=== PATIENT | male | born 1945 | race African-American/Black ===

== ENCOUNTER 2019-07-02 02:55 | Inpatient (IN) ==
[2019-07-02] MEDS ORDERED: ASPIRIN 325 MG TABLET PO STA (03:29)
[2019-07-02] MEDS ORDERED: DILTIAZEM 50 MG/10 ML VIAL IV STA (03:29)
[2019-07-02] MEDS ORDERED: SODIUM CHLORIDE 0.9% 1,000 ML IV STA (03:30)
[2019-07-02] MEDS ORDERED: DILTIAZEM 25 MG/5 ML VIAL IV ONE (03:30)
[2019-07-02 03:40] LABS: Basophils % 0.5 % (0.0-0.8); Eosinophils # 0.2 10*3/uL (0.0-0.87); Eosinophils % 2.5 % (0.00-10.9); Hematocrit 47.7 VOL% (42.0-52.0); Immature Granulocytes % 0.5 %; Immature Granulocytes Absolute 0.04 #; Lymphocytes # 2.5 10*3/uL (1.4-4.0); Lymphocytes % 28.9 % (21.2-54.2); Mean Corpuscular HGB Conc 31.4 GM/DL (32-36); Mean Corpuscular Volume 83.5 FL (87-102); Mean Platelet Volume 10.9 FL (9.6-12.0); Monocytes % 8.4 % (1.7-12.7); Neutrophils % 59.2 % (38.7-73.9); Platelet Count 310 T/CUMM (130-400); Red Blood Count 5.71 MC/CUMM (3.8-5.5); Red Cell Distribution Width 16.5 % (9.3-17.3); White Blood Count 8.6 T/CUMM (4-12)
[2019-07-02 03:54] LABS: INR 0.9; PT Patient Result 10.1 SECS (9.6-12.2)
[2019-07-02] MEDS ORDERED: DILTIAZEM INJ 100 MG in SODIUM CHLORIDE 0.9% 100 ML IV SCH (04:00)
[2019-07-02 04:06] LABS: Alanine Aminotransferase 31 U/L (16-61); Alkaline Phosphatase 84 U/L (45-117); Aspartate Amino Transferase 24 U/L (0-37); Bilirubin,Total < 0.39 MG/DL (0.2-1.0); Blood Urea Nitrogen 15 MG/DL (7-18); Calcium 10.5 MG/DL (8.5-10.1); Estimated Glom Filtration Rate 79 ML/MIN; Glucose 214 MG/DL (74-106); Total Protein 8.9 G/DL (6.4-8.3)
[2019-07-02] MEDS ORDERED: ENOXAPARIN 30 MG/0.3 ML SYRINGE SUBCUT STA (04:11)
[2019-07-02] MEDS ORDERED: ACETAMINOPHEN 325 MG TABLET PO PRN (04:16)
[2019-07-02] MEDS ORDERED: diphenhydrAMINE CAP 25 MG CAPSULE PO PRN (04:16)
[2019-07-02] MEDS ORDERED: NICOTINE 21 MG/24 HR PATCH TRANSDERM PRN (04:16)
[2019-07-02] MEDS ORDERED: hydrALAZINE 20 MG/1 ML VIAL IV PRN (04:16)
[2019-07-02] MEDS ORDERED: ONDANSETRON 4 MG/2 ML VIAL IV PRN (04:16)
[2019-07-02] MEDS ORDERED: ALUMINUM/MAGNES/SIMETH MAX STR 30 ML UDCUP PO PRN (04:16)
[2019-07-02] MEDS: dilTIAZem Drip 125 MG/125 ML PREMIX IV SCH (04:26)
[2019-07-02 04:58] LABS: Risk Ratio 2.25; VLDL CHOLESTEROL 14.8 MG/DL
[2019-07-02 05:04] LABS: Thyroid Stimulating Hormone 3.58 uIU/ml (0.358-3.74)
[2019-07-02] MEDS ORDERED: GLUCAGON 1 MG VIAL IM PRN (11:22)
[2019-07-02] MEDS ORDERED: DEXTROSE 10% 250 ML BAG IV PRN (11:22)
[2019-07-02] MEDS ORDERED: metFORMIN 500 MG TABLET PO SCH (11:30)
[2019-07-02] MEDS ORDERED: amLODIPine 10 MG TABLET PO SCH (11:30)
[2019-07-02] MEDS: ASPIRIN EC 81 MG TABLET PO SCH (11:46)
[2019-07-02] MEDS: glipiZIDE 10 MG TABLET PO SCH ×2 (11:46→21:25)
[2019-07-02] MEDS: LOSARTAN 25 MG TABLET PO SCH (11:46)
[2019-07-02] MEDS: CLOPIDOGREL 75 MG TABLET PO SCH (11:46)
[2019-07-02] MEDS: sitaGLIPtin 100 MG TABLET PO SCH (11:47)
[2019-07-02] MEDS: SULFAMETHOX/TRIMETHOPRIM 800-160 MG TABLET PO SCH ×2 (12:00→21:26)
[2019-07-02] MEDS: INSULIN LISPRO 100 UNIT/ML SUBCUT SCH ×3 (12:00→21:25)
[2019-07-02] MEDS: METOPROLOL TARTRATE 25 MG TABLET PO SCH ×2 (13:33→18:30)
[2019-07-02] MEDS ORDERED: ATORVASTATIN 10 MG TABLET PO SCH (21:00)
[2019-07-02] MEDS: ATORVASTATIN 40 MG TABLET PO SCH (21:24)
[2019-07-02] MEDS: ENOXAPARIN 80 MG/0.8 ML SYRINGE SUBCUT SCH (21:25)
[2019-07-03] MEDS: METOPROLOL TARTRATE 25 MG TABLET PO SCH ×4 (01:04→20:42)
[2019-07-03] MEDS: dilTIAZem Drip 125 MG/125 ML PREMIX IV SCH (01:21)
[2019-07-03 05:30] LABS: Basophils # 0.1 10*3/uL (0.0-0.2); Basophils % 0.6 % (0.0-0.8); Eosinophils # 0.2 10*3/uL (0.0-0.87); Eosinophils % 2.4 % (0.00-10.9); Hematocrit 39.3 VOL% (42.0-52.0); Hemoglobin 12.4 GM/DL (14.0-18.0); Immature Granulocytes % 0.5 %; Immature Granulocytes Absolute 0.04 #; Lymphocytes # 2.6 10*3/uL (1.4-4.0); Lymphocytes % 31.2 % (21.2-54.2); Mean Corpuscular HGB Conc 31.6 GM/DL (32-36); Mean Corpuscular Volume 83.1 FL (87-102); Neutrophils % 56.3 % (38.7-73.9); Platelet Count 298 T/CUMM (130-400); Red Blood Count 4.73 MC/CUMM (3.8-5.5); Red Cell Distribution Width 16.2 % (9.3-17.3); White Blood Count 8.3 T/CUMM (4-12)
[2019-07-03 05:51] LABS: Calcium 9.2 MG/DL (8.5-10.1); Osmolality,Calculated 280.4 MOS/KG (273-304)
[2019-07-03] MEDS: INSULIN LISPRO 100 UNIT/ML SUBCUT SCH ×5 (06:51→20:44)
[2019-07-03] MEDS: LOSARTAN 25 MG TABLET PO SCH (09:33)
[2019-07-03] MEDS: glipiZIDE 10 MG TABLET PO SCH ×2 (09:33→20:41)
[2019-07-03] MEDS: sitaGLIPtin 100 MG TABLET PO SCH (09:34)
[2019-07-03] MEDS: CLOPIDOGREL 75 MG TABLET PO SCH (09:34)
[2019-07-03] MEDS: ASPIRIN EC 81 MG TABLET PO SCH (09:34)
[2019-07-03] MEDS: ENOXAPARIN 80 MG/0.8 ML SYRINGE SUBCUT SCH (09:34)
[2019-07-03] MEDS: SULFAMETHOX/TRIMETHOPRIM 800-160 MG TABLET PO SCH ×2 (09:35→20:44)
[2019-07-03] MEDS: ATORVASTATIN 40 MG TABLET PO SCH (20:41)
[2019-07-04 06:22] LABS: Basophils % 0.5 % (0.0-0.8); Eosinophils # 0.2 10*3/uL (0.0-0.87); Eosinophils % 3.3 % (0.00-10.9); Hematocrit 38.5 VOL% (42.0-52.0); Hemoglobin 12.6 GM/DL (14.0-18.0); Immature Granulocytes % 0.3 %; Immature Granulocytes Absolute 0.02 #; Lymphocytes # 2.2 10*3/uL (1.4-4.0); Lymphocytes % 29.6 % (21.2-54.2); Mean Corpuscular HGB Conc 32.7 GM/DL (32-36); Mean Corpuscular Volume 80.9 FL (87-102); Mean Platelet Volume 11.5 FL (9.6-12.0); Monocytes % 11.6 % (1.7-12.7); Neutrophils % 54.7 % (38.7-73.9); Platelet Count 265 T/CUMM (130-400); Red Blood Count 4.76 MC/CUMM (3.8-5.5); Red Cell Distribution Width 15.8 % (9.3-17.3); White Blood Count 7.3 T/CUMM (4-12)
[2019-07-04 06:32] LABS: Calcium 9.3 MG/DL (8.5-10.1); Osmolality,Calculated 282.3 MOS/KG (273-304)
[2019-07-04] MEDS: INSULIN LISPRO 100 UNIT/ML SUBCUT SCH ×4 (08:40→21:18)
[2019-07-04] MEDS: CLOPIDOGREL 75 MG TABLET PO SCH (08:45)
[2019-07-04] MEDS: SULFAMETHOX/TRIMETHOPRIM 800-160 MG TABLET PO SCH ×2 (08:45→21:18)
[2019-07-04] MEDS: LOSARTAN 25 MG TABLET PO SCH (08:45)
[2019-07-04] MEDS: METOPROLOL TARTRATE 25 MG TABLET PO SCH ×2 (08:45→21:19)
[2019-07-04] MEDS: ASPIRIN EC 81 MG TABLET PO SCH (08:45)
[2019-07-04] MEDS: glipiZIDE 10 MG TABLET PO SCH ×2 (08:47→21:18)
[2019-07-04] MEDS: sitaGLIPtin 100 MG TABLET PO SCH (08:47)
[2019-07-04] MEDS ORDERED: diphenhydrAMINE CAP 25 MG CAPSULE PO ONE (11:26)
[2019-07-04] MEDS ORDERED: DIAZEPAM 5 MG TABLET PO ONE (11:26)
[2019-07-04] MEDS ORDERED: SODIUM CHLORIDE 0.45% 1,000 ML IV SCH (11:30)
[2019-07-04] MEDS ORDERED: MIDAZOLAM 2 MG/2 ML VIAL ONE ×2 (14:07→14:59)
[2019-07-04] MEDS ORDERED: fentaNYL 100 MCG/2 ML VIAL ONE (14:07)
[2019-07-04] MEDS ORDERED: LIDOCAINE 1% 20 ML VIAL ONE (14:49)
[2019-07-04] MEDS ORDERED: SODIUM CHLORIDE 0.9% 1,000 ML IV SCH (15:30)
[2019-07-04] MEDS: ATORVASTATIN 40 MG TABLET PO SCH (21:18)
[2019-07-05 05:10] LABS: Basophils # 0.1 10*3/uL (0.0-0.2); Basophils % 0.7 % (0.0-0.8); Eosinophils # 0.2 10*3/uL (0.0-0.87); Eosinophils % 2.5 % (0.00-10.9); Hematocrit 43.6 VOL% (42.0-52.0); Hemoglobin 13.8 GM/DL (14.0-18.0); Immature Granulocytes % 0.3 %; Immature Granulocytes Absolute 0.02 #; Lymphocytes # 1.7 10*3/uL (1.4-4.0); Lymphocytes % 24.2 % (21.2-54.2); Mean Corpuscular HGB Conc 31.7 GM/DL (32-36); Mean Corpuscular Volume 81.8 FL (87-102); Mean Platelet Volume 12.2 FL (9.6-12.0); Monocytes % 11.9 % (1.7-12.7); Neutrophils % 60.4 % (38.7-73.9); Platelet Count 281 T/CUMM (130-400); Red Blood Count 5.33 MC/CUMM (3.8-5.5); Red Cell Distribution Width 15.9 % (9.3-17.3); White Blood Count 6.9 T/CUMM (4-12)
[2019-07-05 05:45] LABS: Calcium 9.3 MG/DL (8.5-10.1); Osmolality,Calculated 286.1 MOS/KG (273-304)
[2019-07-05] MEDS: INSULIN LISPRO 100 UNIT/ML SUBCUT SCH ×2 (08:43→13:01)
[2019-07-05 09:05] VITALS: BP 133/75
[2019-07-05] MEDS: glipiZIDE 10 MG TABLET PO SCH (09:35)
[2019-07-05] MEDS: ASPIRIN EC 81 MG TABLET PO SCH (09:36)
[2019-07-05] MEDS: METOPROLOL TARTRATE 25 MG TABLET PO SCH (09:36)
[2019-07-05] MEDS: sitaGLIPtin 100 MG TABLET PO SCH (09:36)
[2019-07-05] MEDS: SULFAMETHOX/TRIMETHOPRIM 800-160 MG TABLET PO SCH (09:36)
[2019-07-05] MEDS: LOSARTAN 25 MG TABLET PO SCH (09:38)
[2019-07-05] MEDS ORDERED: ASCORBIC ACID 500 MG TABLET PO SCH (21:00)
== END 2019-07-05 13:15 | disposition home or self-care, planned readmission (81) | DRG 282 ==
LOC: N.ED 02:55 → N.EDINP 04:16 → N.TELES 05:14
PROVIDERS: ADMIT Internal Medicine; ATTEND Internal Medicine

== ENCOUNTER 2019-07-13 07:00 | Inpatient (IN) ==
[2019-07-13] MEDS ORDERED: DEXTROSE 50% 25 GM/50 ML VIAL IV PRN ×2 (08:55)
[2019-07-13] MEDS ORDERED: CEFUROXIME INJ 1,500 MG in SYRINGE 1 EACH IV ONE (08:55)
[2019-07-13] MEDS ORDERED: GLUCAGON 1 MG VIAL IM PRN ×2 (08:55)
[2019-07-13] MEDS ORDERED: SODIUM CHLORIDE 0.9% 1,000 ML IV SCH (09:00)
[2019-07-13 10:05] LABS: ABG HCO3 19.9 MMOL/L (20-26); ABG Oxygen Saturation 95.4 % (95-100); ABG PCO2 32.8 MM HG (35-48); ABG PO2 78.5 MM HG (80-95); ABG TCO2 20.9 MMOL/L (23-27); Allen Test Positive; Pt O2 Delivery Device Room Air
[2019-07-13] MEDS: CHLORHEXIDINE 0.12% ORAL RINSE 60 ML BOTTLE SWISH/SPIT SCH ×2 (10:26→21:19)
[2019-07-13 10:31] LABS: Basophils # 0.1 10*3/uL (0.0-0.2); Basophils % 0.8 % (0.0-0.8); Eosinophils # 0.2 10*3/uL (0.0-0.87); Eosinophils % 2.1 % (0.00-10.9); Hematocrit 42.3 VOL% (42.0-52.0); Hemoglobin 13.5 GM/DL (14.0-18.0); Immature Granulocytes % 0.3 %; Immature Granulocytes Absolute 0.02 #; Mean Corpuscular HGB Conc 31.9 GM/DL (32-36); Mean Corpuscular Volume 82.5 FL (87-102); Mean Platelet Volume 11.5 FL (9.6-12.0); Monocytes % 8.9 % (1.7-12.7); Neutrophils % 60.9 % (38.7-73.9); Platelet Count 285 T/CUMM (130-400); Red Blood Count 5.13 MC/CUMM (3.8-5.5); Red Cell Distribution Width 16.1 % (9.3-17.3); White Blood Count 7.5 T/CUMM (4-12)
[2019-07-13 10:54] LABS: Albumin 3.4 G/DL (3.4-5.0); Bilirubin,Total 0.9 MG/DL (0.2-1.0); Calcium 9.5 MG/DL (8.5-10.1); Osmolality,Calculated 279.5 MOS/KG (273-304); Total Protein 7.8 G/DL (6.4-8.3)
[2019-07-13] MEDS ORDERED: NITROGLYCERIN SL 0.4 MG TABLET SL PRN (11:19)
[2019-07-13] MEDS: INSULIN LISPRO 100 UNIT/ML SUBCUT SCH ×3 (12:35→21:20)
[2019-07-13] MEDS: CHLORHEXIDINE 4% SOLN 118 ML BOTTLE TOP SCH ×3 (13:53→21:27)
[2019-07-13] MEDS ORDERED: ATORVASTATIN 40 MG TABLET PO SCH (21:00)
[2019-07-13] MEDS: METOPROLOL TARTRATE 25 MG TABLET PO SCH (21:20)
[2019-07-14] MEDS ORDERED: VANCOMYCIN 1,000 MG VIAL ONE (04:22)
[2019-07-14] MEDS ORDERED: VANCOMYCIN 500 MG VIAL ONE (04:22)
[2019-07-14] MEDS ORDERED: PAPAVERINE 60 MG/2 ML VIAL ONE (04:22)
[2019-07-14] MEDS ORDERED: FAMOTIDINE 20 MG TABLET PO ONE (05:23)
[2019-07-14] MEDS ORDERED: DIAZEPAM 5 MG TABLET PO ONE (05:25)
[2019-07-14] MEDS ORDERED: CEFUROXIME INJ 1,500 MG in SYRINGE 1 EACH IV ONE (06:00)
[2019-07-14] MEDS ORDERED: SODIUM CHLORIDE 0.9% 1,000 ML IV SCH (06:00)
[2019-07-14] MEDS ORDERED: SUFentanil 250 MCG/5 ML AMP ONE (06:05)
[2019-07-14] MEDS ORDERED: MIDAZOLAM 10 MG/2 ML VIAL ONE (06:05)
[2019-07-14 07:48] LABS: ABG Base Excess -0.5 MMOL/L (-2.5-2.5); ABG PH 7.457 (7.35-7.45); ABG TCO2 19.9 MMOL/L (23-27); Glucose Heart Surgery 97 MG/DL (74-106); Ionized Calcium Arterial 1.17 MMOL/L (1.21-1.46); PH Patient Temp Arterial 7.457; Patient Temperature 37 CELCIUS; Potassium Heart/CVR 3.5 MMOL/L (3.5-5.1); Sodium Heart/CVR 139 MMOL/L (135-145)
[2019-07-14 08:01] LABS: Apearance,Urine CLEAR (Clear); Bilirubin,Urine Negative (Negative); Blood, Urine Moderate mg/dL (Negative); Glucose,Urine (UA) Negative (Negative); Ketones,Urine Negative (Negative); Mucus,Urine Occasional /LPF (Occasional); Nitrite,Urine Negative (Negative); Protein,Urine 30 MG/DL; RBC,Urine 13 /HPF (0-4); Squamous Epithelial Cell,Urine Occasional /HPF (0-10); Urine Color Yellow (Yellow); Urine Urobilinogen < 2.0 EU/DL (0.2-1.0)
[2019-07-14] MEDS ORDERED: POTASSIUM CHLORIDE RIDER 100 ML IV ONE (08:10)
[2019-07-14] MEDS ORDERED: NITROPRUSSIDE 50 MG/2 ML VIAL ONE (08:10)
[2019-07-14] MEDS: INSULIN LISPRO 100 UNIT/ML SUBCUT SCH (08:49)
[2019-07-14] MEDS: CHLORHEXIDINE 0.12% ORAL RINSE 60 ML BOTTLE SWISH/SPIT SCH (08:50)
[2019-07-14] MEDS: METOPROLOL TARTRATE 25 MG TABLET PO SCH (08:50)
[2019-07-14] MEDS ORDERED: ASPIRIN EC 81 MG TABLET PO SCH (09:00)
[2019-07-14] MEDS ORDERED: LOSARTAN 25 MG TABLET PO SCH (09:00)
[2019-07-14 09:01] LABS: Hematocrit Heart Surgery 24.7 PERCENT (42-52); Hemoglobin Heart Surgery 7.9 G/DL (14.0-18.0); PH Patient Temp Venous 7.517; PO2 Patient Temp Venous 40.6 MM HG; Potassium Heart/CVR 4.1 MMOL/L (3.5-5.1); VBG Base Excess -0.3 MEQ/L (0-4); VBG Oxygen Saturation 88.2 %; VBG PCO2 31.3 MMHG (41-51); VBG PH 7.472; VBG PO2 49.8 MMHG (17-40)
[2019-07-14] MEDS ORDERED: PHENYLEPHRINE 10 MG/1 ML VIAL IV ONE ×2 (09:05)
[2019-07-14] MEDS ORDERED: NITROGLYCERIN DRIP 50 MG/250 ML BOTTLE IV ONE (09:05)
[2019-07-14] MEDS ORDERED: HEPARIN/NACL 0.9% 2 UNITS/ML 500 ML IV ONE (09:05)
[2019-07-14 09:26] LABS: Hematocrit Heart Surgery 26.4 PERCENT (42-52); Hemoglobin Heart Surgery 8.5 G/DL (14.0-18.0); PCO2 Patient Temp Venous 26.6 MM HG; PH Patient Temp Venous 7.514; PO2 Patient Temp Venous 38.6 MM HG; Potassium Heart/CVR 4.3 MMOL/L (3.5-5.1); VBG Base Excess -0.8 MEQ/L (0-4); VBG HCO3 23.5 MEQ/L (24-28); VBG Oxygen Saturation 83.7 %; VBG PCO2 29.3 MMHG (41-51); VBG PH 7.484; VBG PO2 44.3 MMHG (17-40)
[2019-07-14] MEDS ORDERED: THROMBIN TOPICAL (RECOMBINANT) 5,000 UNIT VIAL TOP ONE (09:35)
[2019-07-14 10:11] LABS: ABG Base Excess -1.1 MMOL/L (-2.5-2.5); ABG HCO3 23.5 MMOL/L (20-26); ABG Oxygen Saturation 99.8 % (95-100); ABG PCO2 32.4 MM HG (35-48); ABG PH 7.446 (7.35-7.45); ABG TCO2 20.4 MMOL/L (23-27); Glucose Heart Surgery 202 MG/DL (74-106); Hematocrit Heart Surgery 29.4 PERCENT (42-52); Hemoglobin Heart Surgery 9.5 G/DL (14.0-18.0); Ionized Calcium Arterial 1.24 MMOL/L (1.21-1.46); PCO2 Patient Temp Arterial 32.4 MMHG; PH Patient Temp Arterial 7.446; Patient Temperature 37 CELCIUS; Potassium Heart/CVR 3.9 MMOL/L (3.5-5.1); Sodium Heart/CVR 134 MMOL/L (135-145)
[2019-07-14] MEDS ORDERED: ALBUMIN 25% 25 GM/100 ML VIAL IV ONE (10:21)
[2019-07-14] MEDS ORDERED: MANNITOL 100 GM/500 ML BAG IV ONE (10:21)
[2019-07-14] MEDS ORDERED: LIDOCAINE 2% 5 ML VIAL ONE ×2 (10:21→11:39)
[2019-07-14] MEDS ORDERED: PROTAMINE SULFATE 250 MG/25 ML VIAL IV ONE (10:21)
[2019-07-14] MEDS ORDERED: SODIUM BICARBONATE 50 MEQ/50 ML VIAL IV ONE (10:21)
[2019-07-14] MEDS ORDERED: HEPARIN 10,000 UNIT/10 ML VIAL ONE (10:21)
[2019-07-14] MEDS ORDERED: DEXTROSE 5% KCL 20 MEQ 20 MEQ/1,000 ML BAG IV ONE (10:21)
[2019-07-14] MEDS ORDERED: MAGNESIUM SULFATE 5 GM/10 ML VIAL IV ONE (10:21)
[2019-07-14] MEDS ORDERED: methylPREDNISolone SOD SUC 1,000 MG/8 ML VIAL ONE (10:22)
[2019-07-14] MEDS ORDERED: FUROSEMIDE 20 MG/2 ML VIAL ONE (10:22)
[2019-07-14] MEDS ORDERED: NITROPRUSSIDE 100 MG in DEXTROSE 5% 250 ML IV PRN (11:14)
[2019-07-14] MEDS ORDERED: ACETAMINOPHEN 650 MG SUPP RECTAL PRN (11:14)
[2019-07-14] MEDS ORDERED: VECURONIUM 10 MG VIAL IV PRN ×2 (11:14)
[2019-07-14] MEDS ORDERED: INSULIN REGULAR 100 UNIT/ML IV ONE (11:14)
[2019-07-14] MEDS ORDERED: MIDAZOLAM 10 MG/2 ML VIAL IV PRN (11:14)
[2019-07-14] MEDS ORDERED: MORPHINE 10 MG/1 ML VIAL IV PRN (11:14)
[2019-07-14] MEDS ORDERED: CHLORHEXIDINE 4% SOLN 118 ML BOTTLE TOP PRN (11:14)
[2019-07-14] MEDS ORDERED: CALCIUM CHLORIDE 1,000 MG/10 ML SYRINGE IV PRN (11:14)
[2019-07-14] MEDS ORDERED: ONDANSETRON 4 MG/2 ML VIAL IV PRN (11:14)
[2019-07-14] MEDS ORDERED: MIDAZOLAM 2 MG/2 ML VIAL IV PRN (11:14)
[2019-07-14] MEDS ORDERED: MAGNESIUM SULF RIDER 2 GM in PREMIX 1 EACH IV PRN (11:14)
[2019-07-14] MEDS ORDERED: DEXTROSE 10% 250 ML BAG IV PRN ×2 (11:14)
[2019-07-14] MEDS ORDERED: MAGNESIUM SULF RIDER 4 GM in PREMIX 1 EACH IV PRN (11:14)
[2019-07-14] MEDS ORDERED: LACTATED RINGERS 250 ML IV PRN (11:14)
[2019-07-14] MEDS ORDERED: INSULIN REGULAR 100 UNIT/ML IV PRN (11:14)
[2019-07-14] MEDS ORDERED: PHENYLEPHRINE DRIP 40 MG/250 ML PREMIX IV PRN (11:14)
[2019-07-14 11:27] LABS: ABG Base Excess -1.5 MMOL/L (-2.5-2.5); ABG HCO3 23.2 MMOL/L (20-26); ABG Oxygen Saturation 97.3 % (95-100); ABG PCO2 42.1 MM HG (35-48); ABG PH 7.362 (7.35-7.45); ABG PO2 95.1 MM HG (80-95); ABG TCO2 21.5 MMOL/L (23-27); Glucose Heart Surgery 205 MG/DL (74-106); Hematocrit Heart Surgery 34.4 PERCENT (42-52); Hemoglobin Heart Surgery 11.2 G/DL (14.0-18.0); Potassium Heart/CVR 3.9 MMOL/L (3.5-5.1)
[2019-07-14] MEDS ORDERED: SODIUM CHLORIDE 0.45% 1,000 ML IV SCH ×2 (11:30)
[2019-07-14] MEDS ORDERED: INSULIN REGULAR DRIP 100 ML IV SCH (11:30)
[2019-07-14 11:33] LABS: Basophils % 0.3 % (0.0-0.8); Eosinophils # 0.1 10*3/uL (0.0-0.87); Eosinophils % 0.4 % (0.00-10.9); Hematocrit 34.8 VOL% (42.0-52.0); Immature Granulocytes % 0.7 %; Immature Granulocytes Absolute 0.09 #; Lymphocytes # 0.9 10*3/uL (1.4-4.0); Lymphocytes % 6.8 % (21.2-54.2); Mean Corpuscular HGB Conc 31.6 GM/DL (32-36); Mean Corpuscular Volume 83.1 FL (87-102); Mean Platelet Volume 11.5 FL (9.6-12.0); Monocytes % 5.2 % (1.7-12.7); Neutrophils % 86.6 % (38.7-73.9); Platelet Count 235 T/CUMM (130-400); Red Blood Count 4.19 MC/CUMM (3.8-5.5); Red Cell Distribution Width 15.9 % (9.3-17.3)
[2019-07-14 11:37] LABS: White Blood Count 13.5 T/CUMM (4-12)
[2019-07-14] MEDS ORDERED: SEVOFLURANE 1 UNIT/15 MINUTE INH ONE (11:39)
[2019-07-14] MEDS ORDERED: ePHEDrine 50 MG/ML AMP ONE (11:39)
[2019-07-14] MEDS ORDERED: CALCIUM CHLORIDE 1,000 MG/10 ML VIAL IV ONE (11:39)
[2019-07-14] MEDS ORDERED: SODIUM CHLORIDE 0.9% 1,000 ML IV ONE (11:40)
[2019-07-14] MEDS ORDERED: MINERAL OIL/PETROLATUM OPH OINT 3.5 GM TUBE ONE (11:40)
[2019-07-14] MEDS ORDERED: ETOMIDATE 40 MG/20 ML VIAL IV ONE (11:40)
[2019-07-14] MEDS ORDERED: AMINOCAPROIC ACID 5,000 MG/20 ML VIAL ONE (11:40)
[2019-07-14] MEDS ORDERED: SODIUM CHLORIDE 0.9% 250 ML IV ONE (11:40)
[2019-07-14] MEDS ORDERED: SODIUM CHLORIDE 0.9% 300 ML IV ONE (11:40)
[2019-07-14] MEDS ORDERED: ALBUMIN 5% 12.5 GM/250 ML VIAL IV ONE (11:40)
[2019-07-14 11:43] LABS: INR 1.1; PT Patient Result 11.8 SECS (9.6-12.2); Partial Thromboplastin Time 28.3 SECS (20.8-36.0)
[2019-07-14] MEDS: ALBUMIN 5% 12.5 GM in PREMIX 1 EACH IV PRN ×3 (11:45→13:07)
[2019-07-14] MEDS: POTASSIUM CHLORIDE RIDER 20 MEQ in PREMIX 1 EACH IV PRN ×5 (11:59→19:58)
[2019-07-14 12:02] LABS: CKMB % 4.9 %
[2019-07-14 12:03] LABS: Troponin I 4.09 NG/ML (0.00-0.045)
[2019-07-14 12:18] LABS: Albumin 3.1 G/DL (3.4-5.0); Bilirubin,Total 1.3 MG/DL (0.2-1.0); Calcium 8.5 MG/DL (8.5-10.1); Osmolality,Calculated 283.5 MOS/KG (273-304); Total Protein 6.3 G/DL (6.4-8.3)
[2019-07-14 12:40] LABS: ABG Base Excess -1.9 MMOL/L (-2.5-2.5); ABG HCO3 22.8 MMOL/L (20-26); ABG Oxygen Saturation 95.7 % (95-100); ABG PCO2 45.3 MM HG (35-48); ABG PH 7.334 (7.35-7.45); ABG TCO2 22.1 MMOL/L (23-27); Glucose Heart Surgery 186 MG/DL (74-106); Potassium Heart/CVR 3.7 MMOL/L (3.5-5.1)
[2019-07-14] MEDS: POTASSIUM CHLORIDE RIDER 10 MEQ in PREMIX 1 EACH IV PRN ×2 (12:51→20:30)
[2019-07-14 14:01] LABS: ABG Base Excess -0.1 MMOL/L (-2.5-2.5); ABG HCO3 24.3 MMOL/L (20-26); ABG Oxygen Saturation 93.9 % (95-100); ABG PCO2 45.6 MM HG (35-48); ABG PH 7.358 (7.35-7.45); ABG PO2 75.1 MM HG (80-95); ABG TCO2 23.4 MMOL/L (23-27); Glucose Heart Surgery 131 MG/DL (74-106); Hematocrit Heart Surgery 30.8 PERCENT (42-52); Potassium Heart/CVR 4.2 MMOL/L (3.5-5.1)
[2019-07-14] MEDS: MORPHINE 4 MG/1 ML VIAL IV PRN ×2 (15:57→18:40)
[2019-07-14 16:08] LABS: ABG Base Excess -0.9 MMOL/L (-2.5-2.5); ABG HCO3 24.7 MMOL/L (20-26); ABG Oxygen Saturation 97.3 % (95-100); ABG PCO2 45.1 MM HG (35-48); ABG PH 7.356 (7.35-7.45); ABG PO2 107.5 MM HG (80-95); ABG TCO2 26.1 MMOL/L (23-27); Glucose Heart Surgery 117 MG/DL (74-106); Hemoglobin Heart Surgery 10.3 G/DL (14.0-18.0)
[2019-07-14 18:16] LABS: ABG Base Excess 0.5 MMOL/L (-2.5-2.5); ABG HCO3 24.9 MMOL/L (20-26); ABG Oxygen Saturation 98.6 % (95-100); ABG PCO2 44.4 MM HG (35-48); ABG PH 7.374 (7.35-7.45); ABG TCO2 23.6 MMOL/L (23-27); Glucose Heart Surgery 122 MG/DL (74-106); Hematocrit Heart Surgery 31.4 PERCENT (42-52); Hemoglobin Heart Surgery 10.2 G/DL (14.0-18.0); Potassium Heart/CVR 4.3 MMOL/L (3.5-5.1)
[2019-07-14] MEDS: CEFUROXIME INJ 1,500 MG in SYRINGE 1 EACH IV SCH (18:25)
[2019-07-14] MEDS ORDERED: HALOPERIDOL 5 MG/ML AMP IV PRN (18:42)
[2019-07-14] MEDS ORDERED: DEXMEDETOMIDINE 400 MCG in SODIUM CHLORIDE 0.9% 96 ML IV PRN (18:57)
[2019-07-14 19:32] LABS: ABG HCO3 24.4 MMOL/L (20-26); ABG PCO2 36.1 MM HG (35-48); ABG PO2 96.7 MM HG (80-95); ABG TCO2 21.4 MMOL/L (23-27); Glucose Heart Surgery 132 MG/DL (74-106); Potassium Heart/CVR 3.7 MMOL/L (3.5-5.1)
[2019-07-14 20:00] LABS: Troponin I 4.03 NG/ML (0.00-0.045)
[2019-07-14] MEDS ORDERED: CHLORHEXIDINE 0.12% ORAL RINSE 60 ML BOTTLE SWISH/SPIT SCH (21:00)
[2019-07-14 21:17] LABS: ABG Base Excess 0.2 MMOL/L (-2.5-2.5); ABG HCO3 24.6 MMOL/L (20-26); ABG Oxygen Saturation 97.7 % (95-100); ABG PCO2 43.4 MM HG (35-48); ABG PH 7.378 (7.35-7.45); ABG PO2 99.9 MM HG (80-95); ABG TCO2 23.3 MMOL/L (23-27); Glucose Heart Surgery 125 MG/DL (74-106); Hematocrit Heart Surgery 30.6 PERCENT (42-52); Hemoglobin Heart Surgery 9.9 G/DL (14.0-18.0); Potassium Heart/CVR 4.4 MMOL/L (3.5-5.1)
[2019-07-14 22:28] LABS: ABG Base Excess 0.3 MMOL/L (-2.5-2.5); ABG HCO3 24.7 MMOL/L (20-26); ABG Oxygen Saturation 98.2 % (95-100); ABG PCO2 42.4 MM HG (35-48); ABG PH 7.385 (7.35-7.45); ABG TCO2 23.2 MMOL/L (23-27); Glucose Heart Surgery 111 MG/DL (74-106); Hematocrit Heart Surgery 30.3 PERCENT (42-52); Hemoglobin Heart Surgery 9.8 G/DL (14.0-18.0); Potassium Heart/CVR 4.2 MMOL/L (3.5-5.1)
[2019-07-14 23:13] LABS: ABG Base Excess -0.1 MMOL/L (-2.5-2.5); ABG HCO3 24.4 MMOL/L (20-26); ABG Oxygen Saturation 97.3 % (95-100); ABG PCO2 35.4 MM HG (35-48); ABG PH 7.436 (7.35-7.45); ABG PO2 86.3 MM HG (80-95); ABG TCO2 21.7 MMOL/L (23-27); Glucose Heart Surgery 97 MG/DL (74-106); Hematocrit Heart Surgery 29.4 PERCENT (42-52); Hemoglobin Heart Surgery 9.5 G/DL (14.0-18.0)
[2019-07-14] MEDS ORDERED: FUROSEMIDE 40 MG/4 ML VIAL IV ONE (23:30)
[2019-07-15 00:28] LABS: ABG Base Excess -0.2 MMOL/L (-2.5-2.5); ABG HCO3 24.2 MMOL/L (20-26); ABG Oxygen Saturation 97.2 % (95-100); ABG PCO2 41.4 MM HG (35-48); ABG PH 7.386 (7.35-7.45); ABG PO2 90.3 MM HG (80-95); ABG TCO2 22.5 MMOL/L (23-27); Glucose Heart Surgery 122 MG/DL (74-106); Hematocrit Heart Surgery 31.8 PERCENT (42-52); Hemoglobin Heart Surgery 10.3 G/DL (14.0-18.0); Potassium Heart/CVR 4.5 MMOL/L (3.5-5.1)
[2019-07-15] MEDS: MORPHINE 4 MG/1 ML VIAL IV PRN ×2 (01:32→06:31)
[2019-07-15 03:30] LABS: ABG Base Excess -0.4 MMOL/L (-2.5-2.5); ABG Oxygen Saturation 94.3 % (95-100); ABG PH 7.416 (7.35-7.45); ABG PO2 69.5 MM HG (80-95); ABG TCO2 21.2 MMOL/L (23-27); Glucose Heart Surgery 156 MG/DL (74-106); Hematocrit Heart Surgery 34.7 PERCENT (42-52); Hemoglobin Heart Surgery 11.2 G/DL (14.0-18.0); Potassium Heart/CVR 4.1 MMOL/L (3.5-5.1)
[2019-07-15 03:47] LABS: Basophils % 0.1 % (0.0-0.8); Hematocrit 34.8 VOL% (42.0-52.0); Immature Granulocytes % 0.5 %; Lymphocytes % 5.2 % (21.2-54.2); Mean Corpuscular HGB Conc 31.6 GM/DL (32-36); Mean Corpuscular Volume 83.1 FL (87-102); Mean Platelet Volume 11.4 FL (9.6-12.0); Monocytes % 5.4 % (1.7-12.7); Neutrophils % 88.8 % (38.7-73.9); Platelet Count 218 T/CUMM (130-400); Red Blood Count 4.19 MC/CUMM (3.8-5.5); Red Cell Distribution Width 15.8 % (9.3-17.3); White Blood Count 19.1 T/CUMM (4-12)
[2019-07-15 04:18] LABS: Albumin 3.5 G/DL (3.4-5.0); Bilirubin,Direct 0.22 MG/DL (0.0-0.20); Bilirubin,Total 1.2 MG/DL (0.2-1.0); Calcium 8.7 MG/DL (8.5-10.1); Osmolality,Calculated 284.1 MOS/KG (273-304); Total Protein 6.6 G/DL (6.4-8.3)
[2019-07-15 04:21] LABS: CKMB % 3.2 %
[2019-07-15 04:22] LABS: Troponin I 2.67 NG/ML (0.00-0.045)
[2019-07-15] MEDS: CEFUROXIME INJ 1,500 MG in SYRINGE 1 EACH IV SCH ×2 (07:05→18:50)
[2019-07-15 07:14] LABS: ABG Base Excess -1.3 MMOL/L (-2.5-2.5); ABG HCO3 23.2 MMOL/L (20-26); ABG PCO2 34.8 MM HG (35-48); ABG TCO2 20.1 MMOL/L (23-27); Glucose Heart Surgery 140 MG/DL (74-106); Hematocrit Heart Surgery 36.2 PERCENT (42-52); Hemoglobin Heart Surgery 11.7 G/DL (14.0-18.0); Potassium Heart/CVR 4.2 MMOL/L (3.5-5.1)
[2019-07-15] MEDS ORDERED: INSULIN REGULAR 100 UNIT/ML SUBCUT SCH (08:00)
[2019-07-15] MEDS ORDERED: MAGNESIUM SULF RIDER 2 GM in PREMIX 1 EACH IV PRN (08:47)
[2019-07-15] MEDS ORDERED: ONDANSETRON 4 MG/2 ML VIAL IV PRN (08:47)
[2019-07-15] MEDS ORDERED: MAGNESIUM HYDROXIDE SUSP 30 ML UDCUP PO PRN (08:47)
[2019-07-15] MEDS ORDERED: ZALEPLON 5 MG CAPSULE PO PRN (08:47)
[2019-07-15] MEDS ORDERED: MAGNESIUM SULF RIDER 4 GM in PREMIX 1 EACH IV PRN (08:47)
[2019-07-15] MEDS ORDERED: DEXTROSE 10% 250 ML BAG IV PRN (08:47)
[2019-07-15] MEDS ORDERED: ACETAMINOPHEN 325 MG TABLET PO PRN (08:47)
[2019-07-15] MEDS ORDERED: POTASSIUM CHLORIDE 20 MEQ TABLET PO PRN (08:47)
[2019-07-15] MEDS ORDERED: ALUMINUM/MAGNES/SIMETH MAX STR 30 ML UDCUP PO PRN (08:47)
[2019-07-15] MEDS ORDERED: GLUCAGON 1 MG VIAL IM PRN (08:47)
[2019-07-15] MEDS ORDERED: amLODIPine 10 MG TABLET PO SCH (09:00)
[2019-07-15] MEDS: LOSARTAN 25 MG TABLET PO SCH (09:23)
[2019-07-15] MEDS: ASCORBIC ACID 500 MG TABLET PO SCH ×2 (09:23→20:47)
[2019-07-15] MEDS: PANTOPRAZOLE 40 MG TABLET PO SCH (09:24)
[2019-07-15] MEDS: SODIUM CHLOR 0.45% KCL 20 MEQ 20 MEQ/1,000 ML BAG IV SCH (09:24)
[2019-07-15] MEDS: FERROUS SULFATE 325 MG TABLET PO SCH (09:24)
[2019-07-15] MEDS: ASPIRIN EC 81 MG TABLET PO SCH (09:24)
[2019-07-15] MEDS: CHLORHEXIDINE 0.12% ORAL RINSE 60 ML BOTTLE SWISH/SPIT SCH ×2 (09:25→20:48)
[2019-07-15] MEDS: CHOLECALCIFEROL 1,000 UNIT TABLET PO SCH (09:25)
[2019-07-15] MEDS: DOCUSATE SODIUM 100 MG CAPSULE PO SCH (09:26)
[2019-07-15] MEDS: METOPROLOL TARTRATE 25 MG TABLET PO SCH ×2 (09:27→20:48)
[2019-07-15 11:57] LABS: Troponin I 2.26 NG/ML (0.00-0.045)
[2019-07-15] MEDS: glipiZIDE 10 MG TABLET PO SCH (16:32)
[2019-07-15] MEDS: metFORMIN 500 MG TABLET PO SCH (16:33)
[2019-07-15] MEDS: oxyCODONE/ACETAMINOPHEN 5-325 MG TABLET PO PRN (17:47)
[2019-07-15] MEDS: INSULIN REGULAR 100 UNIT/ML SUBCUT SCH ×2 (19:06→23:47)
[2019-07-15] MEDS: ATORVASTATIN 40 MG TABLET PO SCH (20:48)
[2019-07-16] MEDS: INSULIN REGULAR 100 UNIT/ML SUBCUT SCH ×5 (04:57→17:27)
[2019-07-16 05:07] LABS: Basophils % 0.1 % (0.0-0.8); Hematocrit 37.1 VOL% (42.0-52.0); Hemoglobin 11.7 GM/DL (14.0-18.0); Immature Granulocytes % 0.6 %; Immature Granulocytes Absolute 0.13 #; Lymphocytes # 1.1 10*3/uL (1.4-4.0); Lymphocytes % 5.2 % (21.2-54.2); Mean Corpuscular HGB Conc 31.5 GM/DL (32-36); Mean Corpuscular Volume 83.4 FL (87-102); Mean Platelet Volume 12.4 FL (9.6-12.0); Monocytes % 8.3 % (1.7-12.7); Neutrophils % 85.8 % (38.7-73.9); Platelet Count 222 T/CUMM (130-400); Red Blood Count 4.45 MC/CUMM (3.8-5.5); Red Cell Distribution Width 16.1 % (9.3-17.3); White Blood Count 20.7 T/CUMM (4-12)
[2019-07-16 05:46] LABS: Band Neutrophils 2 % (0-10); Hypochromasia 1+; Lymphocytes 8 % (20-55); Segmented Neutrophils 86 % (50-85); Total Cells Counted 100
[2019-07-16 05:47] LABS: Microcytosis 1+; Ovalocytes Slight; Platelet Estimate Normal
[2019-07-16 05:50] LABS: Alanine Aminotransferase 19 U/L (16-61); Albumin 3.7 G/DL (3.4-5.0); Alkaline Phosphatase 62 U/L (45-117); Aspartate Amino Transferase 18 U/L (0-37); Bilirubin,Indirect 0.6 MG/DL (0.0-1.0); Total Protein 7.1 G/DL (6.4-8.3)
[2019-07-16] MEDS ORDERED: FUROSEMIDE 40 MG/4 ML VIAL IV ONE (06:00)
[2019-07-16 06:33] LABS: Albumin 3.7 G/DL (3.4-5.0); Calcium 8.9 MG/DL (8.5-10.1); Osmolality,Calculated 281.5 MOS/KG (273-304)
[2019-07-16 06:38] LABS: Bilirubin,Total 0.7 MG/DL (0.2-1.0); Total Protein 7.2 G/DL (6.4-8.3)
[2019-07-16 07:03] LABS: Bilirubin,Direct 0.23 MG/DL (0.0-0.20)
[2019-07-16] MEDS: metFORMIN 500 MG TABLET PO SCH ×2 (09:21→17:15)
[2019-07-16] MEDS: LOSARTAN 25 MG TABLET PO SCH (09:22)
[2019-07-16] MEDS: PANTOPRAZOLE 40 MG TABLET PO SCH (09:22)
[2019-07-16] MEDS: CHOLECALCIFEROL 1,000 UNIT TABLET PO SCH (09:22)
[2019-07-16] MEDS: FERROUS SULFATE 325 MG TABLET PO SCH (09:22)
[2019-07-16] MEDS: ASPIRIN EC 81 MG TABLET PO SCH (09:22)
[2019-07-16] MEDS: ASCORBIC ACID 500 MG TABLET PO SCH ×2 (09:23→21:06)
[2019-07-16] MEDS: amLODIPine 5 MG TABLET PO SCH (09:23)
[2019-07-16] MEDS: DOCUSATE SODIUM 100 MG CAPSULE PO SCH (09:23)
[2019-07-16] MEDS: glipiZIDE 10 MG TABLET PO SCH ×2 (09:23→17:15)
[2019-07-16] MEDS: METOPROLOL TARTRATE 50 MG TABLET PO SCH ×2 (09:23→21:06)
[2019-07-16] MEDS: CHLORHEXIDINE 0.12% ORAL RINSE 60 ML BOTTLE SWISH/SPIT SCH ×2 (09:24→21:06)
[2019-07-16] MEDS: SODIUM CHLOR 0.45% KCL 20 MEQ 20 MEQ/1,000 ML BAG IV SCH (09:37)
[2019-07-16] MEDS ORDERED: hydrALAZINE 20 MG/1 ML VIAL IV PRN (09:41)
[2019-07-16] MEDS ORDERED: LOSARTAN 25 MG TABLET PO ONE (10:00)
[2019-07-16] MEDS: oxyCODONE/ACETAMINOPHEN 5-325 MG TABLET PO PRN (10:30)
[2019-07-16] MEDS: ATORVASTATIN 40 MG TABLET PO SCH (21:06)
[2019-07-17] MEDS: INSULIN REGULAR 100 UNIT/ML SUBCUT SCH ×5 (00:07→21:03)
[2019-07-17 05:37] LABS: Basophils % 0.2 % (0.0-0.8); Eosinophils % 0.2 % (0.00-10.9); Hematocrit 35.4 VOL% (42.0-52.0); Hemoglobin 11.6 GM/DL (14.0-18.0); Immature Granulocytes % 0.7 %; Immature Granulocytes Absolute 0.13 #; Lymphocytes # 2.2 10*3/uL (1.4-4.0); Lymphocytes % 12.5 % (21.2-54.2); Mean Corpuscular HGB Conc 32.8 GM/DL (32-36); Mean Corpuscular Volume 81.2 FL (87-102); Mean Platelet Volume 12.8 FL (9.6-12.0); Monocytes % 9.5 % (1.7-12.7); Neutrophils % 76.9 % (38.7-73.9); Platelet Count 198 T/CUMM (130-400); Red Blood Count 4.36 MC/CUMM (3.8-5.5); Red Cell Distribution Width 16.5 % (9.3-17.3); White Blood Count 17.9 T/CUMM (4-12)
[2019-07-17 05:57] LABS: Albumin 3.3 G/DL (3.4-5.0); Bilirubin,Direct 0.17 MG/DL (0.0-0.20); Bilirubin,Total 0.8 MG/DL (0.2-1.0); Calcium 9.7 MG/DL (8.5-10.1); Osmolality,Calculated 279.7 MOS/KG (273-304); Total Protein 7.7 G/DL (6.4-8.3)
[2019-07-17 06:27] LABS: Alanine Aminotransferase 19 U/L (16-61); Albumin 3.5 G/DL (3.4-5.0); Alkaline Phosphatase 68 U/L (45-117); Aspartate Amino Transferase 19 U/L (0-37); Bilirubin,Indirect 0.6 MG/DL (0.0-1.0); Total Protein 7.2 G/DL (6.4-8.3)
[2019-07-17] MEDS: glipiZIDE 10 MG TABLET PO SCH ×2 (09:11→16:28)
[2019-07-17] MEDS: METOPROLOL TARTRATE 50 MG TABLET PO SCH ×2 (09:11→21:04)
[2019-07-17] MEDS: amLODIPine 5 MG TABLET PO SCH (09:11)
[2019-07-17] MEDS: ASCORBIC ACID 500 MG TABLET PO SCH ×2 (09:11→21:04)
[2019-07-17] MEDS: DOCUSATE SODIUM 100 MG CAPSULE PO SCH (09:11)
[2019-07-17] MEDS: ASPIRIN EC 81 MG TABLET PO SCH (09:11)
[2019-07-17] MEDS: CHOLECALCIFEROL 1,000 UNIT TABLET PO SCH (09:12)
[2019-07-17] MEDS: CHLORHEXIDINE 0.12% ORAL RINSE 60 ML BOTTLE SWISH/SPIT SCH ×2 (09:12→21:06)
[2019-07-17] MEDS: PANTOPRAZOLE 40 MG TABLET PO SCH (09:12)
[2019-07-17] MEDS: metFORMIN 500 MG TABLET PO SCH ×2 (09:12→16:28)
[2019-07-17] MEDS: LOSARTAN 50 MG TABLET PO SCH (09:12)
[2019-07-17] MEDS: FERROUS SULFATE 325 MG TABLET PO SCH (09:12)
[2019-07-17] MEDS: ATORVASTATIN 40 MG TABLET PO SCH (21:04)
[2019-07-18 04:54] LABS: Basophils % 0.3 % (0.0-0.8); Eosinophils # 0.1 10*3/uL (0.0-0.87); Eosinophils % 0.7 % (0.00-10.9); Hematocrit 35.2 VOL% (42.0-52.0); Hemoglobin 11.2 GM/DL (14.0-18.0); Immature Granulocytes % 0.9 %; Immature Granulocytes Absolute 0.11 #; Lymphocytes % 16.4 % (21.2-54.2); Mean Corpuscular HGB Conc 31.8 GM/DL (32-36); Mean Platelet Volume 12.4 FL (9.6-12.0); Monocytes % 11.4 % (1.7-12.7); Neutrophils % 70.3 % (38.7-73.9); Platelet Count 243 T/CUMM (130-400); Red Blood Count 4.24 MC/CUMM (3.8-5.5); Red Cell Distribution Width 16.3 % (9.3-17.3); White Blood Count 12.2 T/CUMM (4-12)
[2019-07-18 05:14] LABS: Calcium 9.5 MG/DL (8.5-10.1); Osmolality,Calculated 283.5 MOS/KG (273-304)
[2019-07-18 07:49] VITALS: BP 122/84
[2019-07-18] MEDS: INSULIN REGULAR 100 UNIT/ML SUBCUT SCH (08:11)
[2019-07-18] MEDS: ASCORBIC ACID 500 MG TABLET PO SCH (08:57)
[2019-07-18] MEDS: metFORMIN 500 MG TABLET PO SCH (08:57)
[2019-07-18] MEDS: CHOLECALCIFEROL 1,000 UNIT TABLET PO SCH (08:57)
[2019-07-18] MEDS: glipiZIDE 10 MG TABLET PO SCH (08:57)
[2019-07-18] MEDS: amLODIPine 5 MG TABLET PO SCH (08:57)
[2019-07-18] MEDS: FERROUS SULFATE 325 MG TABLET PO SCH (08:57)
[2019-07-18] MEDS: DOCUSATE SODIUM 100 MG CAPSULE PO SCH (08:57)
[2019-07-18] MEDS: LOSARTAN 50 MG TABLET PO SCH (08:57)
[2019-07-18] MEDS: METOPROLOL TARTRATE 50 MG TABLET PO SCH (08:57)
[2019-07-18] MEDS: CHLORHEXIDINE 0.12% ORAL RINSE 60 ML BOTTLE SWISH/SPIT SCH (08:58)
[2019-07-18] MEDS: ASPIRIN EC 81 MG TABLET PO SCH (08:58)
[2019-07-18] MEDS: PANTOPRAZOLE 40 MG TABLET PO SCH (08:58)
[2019-07-18] MEDS ORDERED: CLOPIDOGREL 75 MG TABLET PO SCH (09:00)
== END 2019-07-18 11:23 | disposition home health service (06) | DRG 236 ==
LOC: N.TELES 08:44 → N.CVR 07-14 10:59 → N.TELES 07-15 10:24 → N.TELEN 07-16 16:40